=== PATIENT | male | born 1950 ===

== ENCOUNTER 2017-12-28 06:29 | Day surgery (SDC) | payer OTHER ==
[~2017-12-28 06:29] MED LIST: ALDACTONE25 MG PO; ATACAND32 MG PO; ATENOLOL50 MG PO; NORVASC10 MG PO; VYTORIN 10-201 EACH PO
== END 2017-12-28 14:15 | disposition home or self-care (01) ==
LOC: CIR.AMB 06:29
DX: L72.0 Epidermal cyst (principal); D21.6 Benign neoplasm of connective and other soft tissue of trunk, unspecified